=== PATIENT | male | born 2005 | race Caucasian/White ===

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

== ENCOUNTER 2025-06-09 20:22 | Emergency (ER) | payer BC, OTHER ==
[2025-06-09] MEDS: Ketorolac 30 MG/ML SDV IM ONE (21:13)
[2025-06-09] MEDS: Diphtheria,Pertussis(Acell),Tetanus Vaccine 0.5 ML Syringe IM ONE (21:15)
[2025-06-09] MEDS: Lidocaine 1% 2 ML ONE (22:25)
== END 2025-06-09 23:14 | disposition home or self-care (01) ==
LOC: JD.ED 20:22
DX: S62.650B Nondisplaced fracture of middle phalanx of right index finger, initial encounter for open fracture (principal); Z23 Encounter for immunization; F17.200 Nicotine dependence, unspecified, uncomplicated; W23.0XXA Caught, crushed, jammed, or pinched between moving objects, initial encounter
CPT/HCPCS: 12001; 73140; 90471; 90715; 96372; 99283; J0690; J1885; J2003

== ENCOUNTER 2025-06-11 09:30 | Emergency (ER) | payer OTHER | END 2025-06-11 10:59 | disposition home or self-care (01) | LOC: JD.ED 09:30 | DX: Z48.817 Encounter for surgical aftercare following surgery on the skin and subcutaneous tissue (principal); Z79.899 Other long term (current) drug therapy | CPT/HCPCS: 99282 ==